=== PATIENT | male | born 1945 | race Caucasian/White ===

== ENCOUNTER 2023-04-01 05:42 | Day surgery (SDC) | payer OTHER ==
[2023-04-01] VITALS (8 sets, daily range): BP systolic 119–137; BP diastolic 60–82
[~2023-04-01] VITALS: Ht 182.9 cm; Wt 73.0 kg
[~2023-04-01 05:42] MED LIST: ENOX100I SC; FISH1000 PO; LISI5 PO; LUBRICATING PL1 EACH OP; Nortriptyline H10 MG PO; OMEP20ER; OMEP40CA12 PO; OXYC5 PO; WARF5 PO
[2023-04-01] MEDS ORDERED: DONEPEZIL HCL10 MG PO (06:58)
[2023-04-01] MEDS ORDERED: METO25ER PO (06:59)
[2023-04-01] MEDS ORDERED: Hytrin2 MG PO (07:00)
[2023-04-01 07:27] LABS: BASOPHILS ABSOLUTE AUTO 0.05 K/mm3 (0.00-0.23); BASOPHILS PERCENT AUTO 1 % (0-2); EOSINOPHILS ABSOLUTE AUTO 0.15 K/mm3 (0.00-0.68); EOSINOPHILS PERCENT AUTO 4 % (0-6); Hematocrit 38.5 % (37.0-53.0); Hemoglobin 12.7 g/dL (13.5-17.5); IMMATURE GRAN PERCENT AUTO 0 % (0-1); LYMPHOCYTES PERCENT AUTO 30 % (21-46); MONOCYTES ABSOLUTE AUTO 0.53 K/mm3 (0.16-1.47); MONOCYTES PERCENT AUTO 13 % (4-13); Mean Corpuscular HGB 30.1 pg (26.0-34.0); Mean Corpuscular Volume 91 fL (80-100); Mean Platelet Volume 9.9 fL (9.1-12.4); NEUTROPHILS ABSOLUTE AUTO 2.08 K/mm3 (1.96-9.15); NEUTROPHILS PERCENT AUTO 52 % (41-73); Platelet Count 236 K/mm3 (150-400); RDW Coefficient Variation 13.9 % (11.7-14.2); RDW Standard Deviation 46.6 fL (35.1-46.3); Red Blood Cell Count 4.22 M/mm3 (4.30-5.90); White Blood Cell Count 4.01 K/mm3 (4.00-11.30)
[2023-04-01] MEDS ORDERED: VITAMIN K PO (07:28)
[2023-04-01 07:41] LABS: International Normalized Ratio 1.19; Prothrombin Time Results 12.4 Sec (9.7-11.5)
[2023-04-01 07:42] LABS: Bun/Creatinine Ratio 21.5 (12.0-20.0); Calcium, Blood 8.9 mg/dL (8.5-10.1); Creatinine, Blood 0.93 mg/dL (0.60-1.20); Potassium, Blood 3.9 mmol/L (3.5-5.5)
--- NOTE | 2023-04-01 09:30 | NUR ---
ASSUMED CARE OF PT POST PROCEDURE. PT AWAKE AND ORIENTED, COOPERAITVE; DENIES PAIN POST PROCEDURE. MONITOR V PACED 50'S, B/P 131/67, SPO2 99% RA, AFEBRILE. L CHEST NO SWELLING/HEMATOMA, TELFA AND TEGADERM DRSG INTACT. PT TAKING SIPS OF JUICE WITHOUT PROBLEM.
--- NOTE | 2023-04-01 11:25 | NUR ---
PT DRESSED SELF WITHOUT ISSUE, SITE UNCHANGED; IV REMOVED-CANNULA INTACT.
--- NOTE | 2023-04-01 11:31 | NUR ---
PT AND NEPHEW RECEIVED DISCHARGE INSTRUCTIONS, MED LIST AND AFTER CARE INSTRUCTIONS; VERBALIZED GOOD UNDERSTANDING. PT LEFT FACILITY VIA W/C, CONDITION STABLE.
[2023-04-03] MEDS ORDERED: ROPINIROLE HCL0.5 MG PO (11:55)
== END 2023-04-01 12:53 | disposition home or self-care (01) ==
LOC: MHTC 05:42
PROVIDERS: Internal Medicine Cardiovascular Disease
DX: Z45.010 Encounter for checking and testing of cardiac pacemaker pulse generator [battery] (principal); I48.20 Chronic atrial fibrillation, unspecified
CPT/HCPCS: 33227; 80048; 85025; 85610; 99152; 99153; C1786; J1644; J2250; J3010; J3370; J7030; J7040